=== PATIENT | female | born 1965 | race African-American/Black ===

== ENCOUNTER 2021-08-21 07:23 | Day surgery (SDC) | payer BC, OTHER ==
[2021-08-21 08:05] VITALS: BMI 43.1
[2021-08-22 14:10] VITALS: BP 118/63; PULSE 64; TEMP 98
== END 2021-08-22 16:25 | disposition home health service (06) ==
LOC: FASUSAT 07:23 → FM/S 13:56 → FASUSAT 08-22 16:25
PROVIDERS: ATTEND Orthopaedic Surgery
PROC: 0SRD0L9 Replacement of Left Knee Joint with Medial Unicondylar Synthetic Substitute, Cemented, Open Approach (ICD-10-PCS; principal; 2021-08-21)
PROC: 8E0YXBZ Computer Assisted Procedure of Lower Extremity (ICD-10-PCS; 2021-08-21)
PROC: 8E0Y0CZ Robotic Assisted Procedure of Lower Extremity, Open Approach (ICD-10-PCS; 2021-08-21)
DX: M17.12 Unilateral primary osteoarthritis, left knee (principal)
CPT/HCPCS: 20985; 27446; C1776; S2900; 73560-TC-LT-FY; 94760; 97010-GP; 97116-GP; 97162-GP; J0131